=== PATIENT | female | born 1975 | race Caucasian/White ===

== ENCOUNTER → 2016-08-13 | Outpatient (CLI) | payer MEDICARE ==
[~2016-08-13] MED LIST: ADULT MULTI G200 MCG PO; AMOXICILLIN500 MG PO; AUGMENTIN ES-6100 ML PO; BACTRIM PEDIAT200 ML PO; CETIRIZINE HY1 MG/ML PO; CILOXAN 5 ML5 M1 OP; CIMETIDINE PO; FAMOTIDINE40 MG/5 M1 PO; KEFLEX250 MG/5 M PO; MULTI VITAMINS1 TAB PO; RANITIDINE15 MG/ML PO; TRIMOX,POL250 MG/5 M PO; TYLENOL W/ CODEI5 ML PO; ZOFRAN4 MG/5 ML PO
--- NOTE | ~2016-08-13 | SLPIE ---
[place], [place] PRESIDENTIAL SUPPORT SPECIALIST INITIAL EVALUATION NAME: JONAS GASTELUM UNIT #: [id number] ROOM: DOCTOR: YUKI GIBSON MD Speech Language Pathology Initial Evaluation Page 1 1 of Patient Name: JONAS GASTELUM Date: 08/13/2016 11:48 AM : 1975 SOC Date: 08/13/2016 [facility]: [facility] Provider #: [id number] Treating Clinician: ART Lorenzana-PRESIDENTIAL SUPPORT SPECIALIST Referring Physician: YUKI GIBSON Patient Information Address: [address] [place] [address] Physician: YUKI GIBSON Physician #: City, [facility], Zip: [place], [place] [address] Occupation: Unknown # of Approved Visits: 0 Gender: Female Shopper: DIMPLE GASTELUM Medicare #: [id number] Rehabilitation Information / History Onset Date Code Description Primary Diagnosis: 08/13/2016 A000.00 DIAGNOSIS FROM INTERFACE NOT FOUND IN [facility] TABLE Subjective Comments: Initial evaluation created to initiate the electronic medical record. Please see [employer] for details. Clinical Findings Functional Goals Functional Limitation Reporting Swallowing G8996 - Swallowing functional limitation, current status at therapy episode outset and at reporting intervals Current Status: CI - At least 1 percent but less than 20 percent impaired, limited or restricted G8997 - Swallowing functional limitation, projected goal status, at therapy episode outset, at reporting intervals, and at discharge or to end reporting Goal Status: CI - At least 1 percent but less than 20 percent impaired, limited or restricted G8998 - Swallowing functional limitation, discharge status, at discharge from therapy or to end reporting Discharge Status: CI - At least 1 percent but less than 20 percent impaired, limited or restricted 08/13/2016 11:49:20 AM ART Lorenzana-PRESIDENTIAL SUPPORT SPECIALIST Date/Time [place], [place] PRESIDENTIAL SUPPORT SPECIALIST INITIAL EVALUATION NAME: JONAS GASTELUM UNIT #: [id number] ROOM: DOCTOR: YUKI GIBSON MD [facility] License #: [id number] CM:CEDRIC 1158 1157 IS THERAPY [facility]
--- NOTE | ~2016-08-13 | SLPPOC ---
[place], [place] DICTATING MACHINE TRANSCRIBER PLAN OF CARE NAME: JONAS GASTELUM UNIT #: [id number] ROOM: DOCTOR: YUKI GIBSON MD Speech Language Pathology Plan of Care Page 1 1 (Initial Evaluation) of Patient Name: JONAS GASTELUM Date: 08/13/2016 11:48 AM : 1975 SOC Date: 08/13/2016 Provider: [facility] Provider #: [id number] Treating Clinician: ART Lorenzana-DICTATING MACHINE TRANSCRIBER Referring Physician: YUKI GIBSON Medicare #: [id number] Visits From SOC: 1 Onset Date Description Code Primary Diagnosis: 08/13/2016 A000.00 DIAGNOSIS FROM INTERFACE NOT FOUND IN [facility] TABLE Subjective Comments: Initial evaluation created to initiate the electronic medical record. Please see [employer] for details. Initial Level Goals Functional Limitation Reporting Swallowing G8996 - Swallowing functional limitation, current status at therapy episode outset and at reporting intervals Current Status: CI - At least 1 percent but less than 20 percent impaired, limited or restricted G8997 - Swallowing functional limitation, projected goal status, at therapy episode outset, at reporting intervals, and at discharge or to end reporting Goal Status: CI - At least 1 percent but less than 20 percent impaired, limited or restricted G8998 - Swallowing functional limitation, discharge status, at discharge from therapy or to end reporting Discharge Status: CI - At least 1 percent but less than 20 percent impaired, limited or restricted 08/13/2016 11:49:20 AM YUKI GIBSON Date/Time ART Lorenzana-TARAN Date I certify the need for these services furnished under this plan of treatment while under my care. State License #: [id number] CM:SLPPOC 1158 1157 IS THERAPY [facility]
--- NOTE | ~2016-08-13 | SLPPN ---
[place], [place] GAS PLANT SPECIALIST PROGRESS NOTE NAME: JONAS GASTELUM UNIT #: [id number] ROOM: DOCTOR: PAIGE SRIVASTAVA,YUKI Speech Language Pathology Treatment Note Page 1 1 of Patient Name: JONAS GASTELUM Date: 08/13/2016 11:49 AM : 1975 SOC Date: 08/13/2016 Provider: [facility] Provider #: [id number] Treating Clinician: ART Lorenzana-GAS PLANT SPECIALIST Referring Physician: YUKI GIBSON Onset Date Description Code Primary Diagnosis: 08/13/2016 A000.00 DIAGNOSIS FROM INTERFACE NOT FOUND IN [facility] TABLE Time In: 10:30 AM Time Out: 11:30 AM GAS PLANT SPECIALIST Interventions and CPT Codes Consisted of: CPT Code Modifiers Minutes Units MOTION FLUOROSCOPY/SWALLOW 56887 60 1 Total Minutes: 60 Total Timed Minutes: 0 Total Untimed Minutes: 60 Total Units: 1 Total Timed Units: 0 Total Untimed Units: 1 08/13/2016 11:50:28 AM ART Lorenzana-TARAN Date/Time State License #: [id number] CM:STEPHAN 1158 1158 IS THERAPY [facility]
--- NOTE | ~2016-08-13 | PROC NOTE ---
[place], [place] PROCEDURE NOTE NAME: JONAS GASTELUM UNIT #: [id number] ROOM: DOCTOR: ABHISHEK LANDA BIRTHDATE: [birth year] DOS: 08/13/2016 MODIFIED BARIUM SWALLOW DOCTOR: Dr. Celaya. RADIOLOGIST: Dr. Hayden. BACKGROUND INFORMATION: The patient is a 41-year-old female was seen for modified barium swallow. This test was ordered to rule out aspiration and view the pharyngeal phase of the swallow. The patient's mother accompanied her for the examination and reported that patient has been complaining of difficulty swallowing. Mom was unsure if she was truly having trouble as she reported that the patient continues to consume a regular diet and thin liquids without difficulty and has had no change in her appetite as well as no known weight loss. Medical history is significant for cerebral palsy and reflux. As previously mentioned, she consumes a regular diet and thin liquids. For today's assessment, she was alert, but with some confusion and difficulty following commands. Respiratory status was within normal limits. Oral peripheral examination revealed presence of upper teeth only. Poor lingual and labial range of motion were displayed. Coordination was mild to moderately impaired with lingual skills. She was unable to volitionally cough or swallow. METHODS AND MATERIALS USED FOR THE EXAM: The patient was positioned in the lateral plane and examination was viewed under fluoroscopy. The patient was presented with a variety of consistencies to assess swallowing skills including applesauce mixed with barium presented in half teaspoon amounts, barium-coated banana and cookie presented in bite size pieces and thin liquid barium taken both by cup and straw. ORAL PHASE: The patient achieved adequate labial seal around cup, spoon and straw with no anterior loss. Bolus formation was adequate. Oral transit was slow with solid consistencies. The patient presented in a natural chin tuck position, which led to food moving anteriorly due to gravity, which made her propulsion slower. Piecemeal swallow was also displayed with solid consistencies. Tongue to palate contact was within normal limits. Tongue to posterior pharyngeal wall contact was mildly impaired. Velar functioning was within normal limits with no nasal regurgitation. PHARYNGEAL PHASE: The pharyngeal swallow occurred within a timely manner. During the swallow, laryngeal elevation and epiglottic function were within normal limits. No penetration or aspiration occurred with any consistency. Mild residue was observed in the vallecula post-swallow. This did clear with subsequent swallows. IMPRESSIONS AND RECOMMENDATIONS: Based upon assessment results, this 41-year-old patient presents with a mild oral dysphagia. She displayed slow bolus propulsion and reduced tongue to posterior pharyngeal wall contraction resulting in mild residue in the vallecula. This residue did clear with reswallow or liquid wash. No penetration or aspiration occurred with any [place], [place] PROCEDURE NOTE NAME: JONAS GASTELUM UNIT #: [id number] ROOM: DOCTOR: ABHISHEK LANDA BIRTHDATE: [birth year] consistency. Recommend the patient remain on present diet, but with soft moist foods that are easier to propel and swallow safely. Also recommend upright feeding, alternating liquids and solids and encouraging an extra swallow or drink if a feeling of globus occurs. Results and recommendations were shared with the patient's mom and a written copy of recommendations was provided for carry over. No followup therapy is recommended. Mom verbalized understanding of all information provided. Thank you very much for this referral. Should you have any questions regarding this patient, please contact the speech pathologist at [phone]. ABHISHEK LANDA CM:PROCNOTE:PROCEDURE NOTE [id number] [id number] ABHISHEK LANDA
== END | disposition home or self-care (01) ==
LOC: RAD/SH 09:51
DX: R13.14 Dysphagia, pharyngoesophageal phase (principal); R13.0 Aphagia

== ENCOUNTER → 2016-10-30 | Outpatient (CLI) | payer MEDICARE ==
[2016-10-30 15:52] LABS: BASO % 0.4 % (0.0-1.0); EOS # 0.1 10*3/uL (0.0-0.4); EOS % 1.5 % (1.0-4.0); HEMATOCRIT 40.6 % (37.0-47.0); HEMOGLOBIN 13.2 g/dl (12.0-16.0); LYMPH # 1.4 10*3/uL (1.3-4.4); LYMPH % 18.3 % (27.0-41.0); MEAN CELL VOLUME 87.5 fl (81.0-99.0); MEAN CORPUSCULAR HGB 28.4 pg (27.0-31.0); MEAN CORPUSCULAR HGB CONC 32.5 g/dl (33.0-37.0); MEAN PLATELET VOLUME 9.5 fl (9.6-12.3); MONO # 0.7 10*3/uL (0.1-1.0); MONO % 9.4 % (3.0-9.0); NEUT # 5.2 10*3/uL (2.3-7.9); NEUT % 70.1 % (47.0-73.0); PLATELET COUNT AUTOMATED 355 10*3/uL (130-400); RED BLOOD COUNT 4.64 10*6/uL (4.10-5.10); RED CELL DISTRI WIDTH 13.8 % (0-14.5); WHITE BLOOD COUNT 7.5 10*3/uL (4.8-10.8)
[2016-10-30 16:25] LABS: ALBUMIN 3.7 gm/dl (3.1-4.5); ALKALINE PHOSPHATASE 85 U/L (45-117); BILIRUBIN, TOTAL 0.4 mg/dl (0.2-1.0); BUN 18 mg/dl (7-24); CARBON DIOXIDE 28 mmol/L (21-32); CHLORIDE 106 mmol/L (98-107); EST GLOM FILT AFRICAN AMERICAN > 60 ml/min; GLUCOSE 72 mg/dL (65-99); POTASSIUM 3.8 mmol/L (3.5-5.1); SGOT/AST 23 IU/L (3-35); SGPT/ALT 21 U/L (12-78); SODIUM 142 mmol/L (136-145); TOTAL PROTEIN 7.4 gm/dL (6.4-8.2)
[2016-10-30 16:33] LABS: THYROID STIM HORMONE (HS) 0.361 uIU/ml (0.358-4.75)
== END | disposition home or self-care (01) ==
LOC: LAB 14:57
PROVIDERS: Internal Medicine
DX: G80.0 Spastic quadriplegic cerebral palsy (principal); E55.9 Vitamin D deficiency, unspecified; R13.14 Dysphagia, pharyngoesophageal phase

== ENCOUNTER 2017-08-22 11:38 | Emergency (ER) | payer MEDICARE ==
[~2017-08-22] VITALS: Wt 45.4 kg
[2017-08-22] MEDS ORDERED: Klor-Con/Ef25 MEQ PO (11:47)
[2017-08-22 12:16] LABS: BASO % 0.3 % (0.0-1.0); EOS # 0.1 10*3/uL (0.0-0.4); EOS % 0.9 % (1.0-4.0); HEMATOCRIT 40.8 % (37.0-47.0); HEMOGLOBIN 12.9 g/dl (12.0-16.0); LYMPH # 0.9 10*3/uL (1.3-4.4); LYMPH % 7.9 % (27.0-41.0); MEAN CELL VOLUME 84.6 fl (81.0-99.0); MEAN CORPUSCULAR HGB 26.8 pg (27.0-31.0); MEAN CORPUSCULAR HGB CONC 31.6 g/dl (33.0-37.0); MEAN PLATELET VOLUME 9.5 fl (9.6-12.3); MONO # 0.6 10*3/uL (0.1-1.0); MONO % 5.2 % (3.0-9.0); NEUT # 9.2 10*3/uL (2.3-7.9); NEUT % 85.4 % (47.0-73.0); PLATELET COUNT AUTOMATED 327 10*3/uL (130-400); RED BLOOD COUNT 4.82 10*6/uL (4.10-5.10); RED CELL DISTRI WIDTH 16.1 % (0-14.5); WHITE BLOOD COUNT 10.7 10*3/uL (4.8-10.8)
[2017-08-22 12:24] LABS: ACT PARTIAL THROMBO TIME 22.7 SECONDS (20.8-31.5); INTERNATIONAL NORM RATIO 0.9 (2.0-3.5)
[2017-08-22 12:31] LABS: ALBUMIN 3.4 gm/dl (3.1-4.5); ALKALINE PHOSPHATASE 100 U/L (45-117); BUN 13 mg/dl (7-24); CHLORIDE 104 mmol/L (98-107); CREATININE 0.39 mg/dL (0.55-1.02); LIPASE 257 U/L (73-393); POTASSIUM 3.4 mmol/L (3.5-5.1); SGOT/AST 25 IU/L (3-35); SGPT/ALT 28 U/L (12-78); SODIUM 137 mmol/L (136-145); TOTAL PROTEIN 7.4 gm/dL (6.4-8.2); TROPONIN I < 0.015 ng/ml (<0.045)
[2017-08-22] MEDS ORDERED: KEPPRA100 MG/1 M PO (16:50)
== END 2017-08-22 16:58 | disposition home or self-care (01) ==
LOC: ED 11:38
PROVIDERS: Emergency Medicine
DX: R56.9 Unspecified convulsions (principal); Z79.899 Other long term (current) drug therapy

== ENCOUNTER 2017-09-27 19:55 | Emergency (ER) | payer MEDICARE ==
[~2017-09-27 19:55] MED LIST changes: +KEPPRA100 MG/1 M PO; +Klor-Con/Ef25 MEQ PO
[2017-09-27] MEDS ORDERED: LEVETIRACE100 MG/1 M PO (20:02)
[2017-09-27 20:54] LABS: BASO # 0.1 10*3/uL (0.0-0.1); BASO % 0.5 % (0.0-1.0); EOS # 0.2 10*3/uL (0.0-0.4); EOS % 1.6 % (1.0-4.0); HEMATOCRIT 39.7 % (37.0-47.0); HEMOGLOBIN 12.6 g/dl (12.0-16.0); LYMPH # 1.4 10*3/uL (1.3-4.4); LYMPH % 15.2 % (27.0-41.0); MEAN CELL VOLUME 85.2 fl (81.0-99.0); MEAN CORPUSCULAR HGB CONC 31.7 g/dl (33.0-37.0); MEAN PLATELET VOLUME 9.8 fl (9.6-12.3); MONO # 0.9 10*3/uL (0.1-1.0); MONO % 9.6 % (3.0-9.0); NEUT # 6.8 10*3/uL (2.3-7.9); PLATELET COUNT AUTOMATED 397 10*3/uL (130-400); RED BLOOD COUNT 4.66 10*6/uL (4.10-5.10); RED CELL DISTRI WIDTH 14.7 % (0-14.5); WHITE BLOOD COUNT 9.3 10*3/uL (4.8-10.8)
[2017-09-27 21:06] LABS: BUN 20 mg/dl (7-24); CHLORIDE 108 mmol/L (98-107); CREATININE 0.43 mg/dL (0.55-1.02); POTASSIUM 3.7 mmol/L (3.5-5.1); SODIUM 143 mmol/L (136-145)
[2017-09-27] MEDS ORDERED: TRIMOX,POL250 MG/5 M PO (22:28)
[2017-09-27] MEDS ORDERED: MOTRIN CHI100 MG/51 PO (22:29)
== END 2017-09-27 22:32 | disposition home or self-care (01) ==
LOC: ED 19:55
PROVIDERS: Emergency Medicine Emergency Medical Services
DX: J02.9 Acute pharyngitis, unspecified (principal); R13.10 Dysphagia, unspecified; G80.0 Spastic quadriplegic cerebral palsy; Z79.899 Other long term (current) drug therapy

== ENCOUNTER → 2018-03-17 | Outpatient (CLI) | payer MEDICARE ==
[~2018-03-17] MED LIST changes: +LEVETIRACE100 MG/1 M PO; +MOTRIN CHI100 MG/51 PO
== END | disposition home or self-care (01) ==
LOC: WOUNDCARE 05:32 → RAD 05:32 → WOUNDCARE 07:00
DX: L89.221 Pressure ulcer of left hip, stage 1 (principal); L89.321 Pressure ulcer of left buttock, stage 1; G80.0 Spastic quadriplegic cerebral palsy; K21.9 Gastro-esophageal reflux disease without esophagitis

== ENCOUNTER 2018-07-03 14:14 | Emergency (ER) | payer MEDICARE ==
[~2018-07-03] VITALS: Wt 36.3 kg
[2018-07-03 14:56] LABS: BASO # 0.1 10*3/uL (0.0-0.1); BASO % 0.6 % (0.0-1.0); EOS # 0.6 10*3/uL (0.0-0.4); EOS % 7.3 % (1.0-4.0); HEMATOCRIT 38.2 % (37.0-47.0); HEMOGLOBIN 12.4 g/dl (12.0-16.0); LYMPH # 1.5 10*3/uL (1.3-4.4); LYMPH % 18.2 % (27.0-41.0); MEAN CELL VOLUME 90.7 fl (81.0-99.0); MEAN CORPUSCULAR HGB 29.5 pg (27.0-31.0); MEAN CORPUSCULAR HGB CONC 32.5 g/dl (33.0-37.0); MEAN PLATELET VOLUME 9.3 fl (9.6-12.3); MONO # 0.7 10*3/uL (0.1-1.0); NEUT # 5.2 10*3/uL (2.3-7.9); NEUT % 64.6 % (47.0-73.0); PLATELET COUNT AUTOMATED 418 10*3/uL (130-400); RED BLOOD COUNT 4.21 10*6/uL (4.10-5.10); RED CELL DISTRI WIDTH 14.6 % (0-14.5)
[2018-07-03 15:41] LABS: ALBUMIN 2.9 gm/dl (3.1-4.5); ALKALINE PHOSPHATASE 126 U/L (45-117); BUN 11 mg/dl (7-24); CHLORIDE 106 mmol/L (98-107); CREATININE 0.37 mg/dL (0.55-1.02); POTASSIUM 3.7 mmol/L (3.5-5.1); SGOT/AST 27 IU/L (3-35); SGPT/ALT 29 U/L (12-78); SODIUM 142 mmol/L (136-145); TOTAL PROTEIN 7.2 gm/dL (6.4-8.2)
[2018-07-03] MEDS ORDERED: MUCINEX DM ER1 EACH PO (15:56)
== END 2018-07-03 16:11 | disposition home or self-care (01) ==
LOC: ED 14:14
PROVIDERS: Nurse Practitioner Family
DX: B34.9 Viral infection, unspecified (principal); R03.0 Elevated blood-pressure reading, without diagnosis of hypertension; Z79.899 Other long term (current) drug therapy

== ENCOUNTER 2019-03-10 00:44 | Emergency (ER) | payer MEDICARE ==
[~2019-03-10] VITALS: Ht 147.3 cm; Wt 44.5 kg
[~2019-03-10 00:44] MED LIST changes: +MUCINEX DM ER1 EACH PO
[2019-03-10 01:41] LABS: BASO % 0.4 % (0.0-1.0); EOS # 0.4 10*3/uL (0.0-0.4); EOS % 3.9 % (1.0-4.0); HEMATOCRIT 40.6 % (37.0-47.0); HEMOGLOBIN 12.6 g/dl (12.0-16.0); LYMPH % 10.5 % (27.0-41.0); MEAN CELL VOLUME 90.2 fl (81.0-99.0); MONO # 0.7 10*3/uL (0.1-1.0); MONO % 6.7 % (3.0-9.0); NEUT # 7.6 10*3/uL (2.3-7.9); NEUT % 78.4 % (47.0-73.0); PLATELET COUNT AUTOMATED 414 10*3/uL (130-400); RED CELL DISTRI WIDTH 15.9 % (0-14.5); WHITE BLOOD COUNT 9.7 10*3/uL (4.8-10.8)
[2019-03-10 01:55] LABS: ALKALINE PHOSPHATASE 125 U/L (45-117); BUN 13 mg/dl (7-24); CHLORIDE 107 mmol/L (98-107); CREATININE 0.51 mg/dL (0.55-1.02); POTASSIUM 3.6 mmol/L (3.5-5.1); SGOT/AST 23 IU/L (3-35); SGPT/ALT 25 U/L (12-78); SODIUM 141 mmol/L (136-145); TOTAL PROTEIN 7.1 gm/dL (6.4-8.2)
== END 2019-03-10 03:15 | disposition home or self-care (01) ==
LOC: ED 00:44
PROVIDERS: Physician Assistant
DX: B34.9 Viral infection, unspecified (principal); Z79.899 Other long term (current) drug therapy

== ENCOUNTER → 2019-09-13 | Outpatient (CLI) | payer MEDICARE ==
[2019-09-13 15:40] LABS: BASO % 0.4 % (0.0-1.0); EOS # 0.4 10*3/uL (0.0-0.4); EOS % 5.8 % (1.0-4.0); HEMATOCRIT 38.5 % (37.0-47.0); LYMPH # 1.1 10*3/uL (1.3-4.4); LYMPH % 15.1 % (27.0-41.0); MEAN CELL VOLUME 84.4 fl (81.0-99.0); MEAN CORPUSCULAR HGB 25.9 pg (27.0-31.0); MEAN CORPUSCULAR HGB CONC 30.6 g/dl (33.0-37.0); MONO # 0.6 10*3/uL (0.1-1.0); MONO % 8.8 % (3.0-9.0); NEUT # 4.9 10*3/uL (2.3-7.9); NEUT % 69.5 % (47.0-73.0); PLATELET COUNT AUTOMATED 524 10*3/uL (130-400); RED BLOOD COUNT 4.56 10*6/uL (4.10-5.10)
[2019-09-13 15:55] LABS: ALBUMIN 2.6 gm/dl (3.1-4.5); ALKALINE PHOSPHATASE 219 U/L (45-117); BUN 12 mg/dl (7-24); CHLORIDE 108 mmol/L (98-107); CREATININE 0.38 mg/dL (0.55-1.02); POTASSIUM 4.2 mmol/L (3.5-5.1); SGOT/AST 25 IU/L (3-35); SGPT/ALT 32 U/L (12-78); SODIUM 138 mmol/L (136-145); TOTAL PROTEIN 7.1 gm/dL (6.4-8.2)
== END | disposition home or self-care (01) ==
LOC: LAB 14:40 → US 15:00
PROVIDERS: Family Medicine
DX: M79.89 Other specified soft tissue disorders (principal)

== ENCOUNTER → 2019-09-20 | Outpatient (CLI) | payer MEDICARE ==
[2019-09-20 14:07] LABS: HEMATOCRIT 36.7 % (37.0-47.0); MEAN CELL VOLUME 85.5 fl (81.0-99.0); MEAN CORPUSCULAR HGB 25.9 pg (27.0-31.0); MEAN CORPUSCULAR HGB CONC 30.2 g/dl (33.0-37.0); MEAN PLATELET VOLUME 8.7 fl (9.6-12.3); PLATELET COUNT AUTOMATED 587 10*3/uL (130-400); RED BLOOD COUNT 4.29 10*6/uL (4.10-5.10); RED CELL DISTRI WIDTH 15.7 % (0-14.5); WHITE BLOOD COUNT 7.7 10*3/uL (4.8-10.8)
[2019-09-20 14:32] LABS: PLATELET SUFFICIENCY HIGH (NORMAL); TOTAL CELLS COUNTED 100 #CELLS
== END | disposition home or self-care (01) ==
LOC: LAB 13:15
PROVIDERS: Family Medicine
DX: D72.819 Decreased white blood cell count, unspecified (principal); R79.89 Other specified abnormal findings of blood chemistry

== ENCOUNTER → 2020-05-10 | Outpatient (CLI) | payer MEDICARE | END | disposition home or self-care (01) | LOC: COVID19 13:16 | PROVIDERS: ATTEND Family Medicine | DX: U07.1 COVID-19 (principal) ==

== ENCOUNTER 2021-02-02 16:37 | Emergency (ER) | payer MEDICARE ==
[~2021-02-02 16:37] MED LIST changes: +CARAFATE1 GM/10 ML PO; -FAMOTIDINE40 MG/5 M1 PO; +FAMOTIDINE40 MG/5 M2 PO; +METHOCARBAMOL500 M1 PO; +POTASSIUM20 MEQ/16 PO; +VITAMIN D325 MCG PO; +ZITHROMAX200 MG/51 PO
[2021-02-02 18:33] LABS: BILIRUBIN Negative (Negative); BLOOD 3+ (Negative); CLARITY Cloudy (Clear); COLOR Yellow (Yellow); GLUCOSE Negative (Negative); KETONE Trace (Negative); LEUKO ESTERASE 1+ (Negative); NITRITE Negative (Negative); PH 5.5 (4.5-8.0); SPECIFIC GRAVITY 1.025 (1.001-1.030); UROBILINOGEN 0.2 E.U./dl (0.0-1.0)
[2021-02-02 18:42] LABS: BASO % 0.4 % (0.0-1.0); EOS # 0.2 10*3/uL (0.0-0.4); EOS % 1.7 % (1.0-4.0); HEMATOCRIT 43.5 % (37.0-47.0); LYMPH # 1.1 10*3/uL (1.3-4.4); LYMPH % 10.1 % (27.0-41.0); MEAN CELL VOLUME 96.7 fl (81.0-99.0); MEAN CORPUSCULAR HGB 30.9 pg (27.0-31.0); MEAN PLATELET VOLUME 9.9 fl (9.6-12.3); MONO # 0.9 10*3/uL (0.1-1.0); MONO % 8.1 % (3.0-9.0); NEUT % 79.3 % (47.0-73.0); PLATELET COUNT AUTOMATED 251 10*3/uL (130-400); RED CELL DISTRI WIDTH 13.3 % (0-14.5); WHITE BLOOD COUNT 11.3 10*3/uL (4.8-10.8)
[2021-02-02 18:46] LABS: BACTERIA 3+; CALCIUM OXALATE CRYSTALS Trace; EPITHELIAL CELLS 51-100; RBC 51-100 rbc/hpf (0-2); WBC 21-30 wbc/hpf (0-5)
[2021-02-02 19:00] LABS: ALBUMIN 3.2 gm/dl (3.1-4.5); ALKALINE PHOSPHATASE 97 U/L (45-117); BUN 15 mg/dl (7-24); CHLORIDE 108 mmol/L (98-107); CREATININE 0.44 mg/dL (0.55-1.02); LIPASE 312 U/L (73-393); SGOT/AST 22 IU/L (3-35); SGPT/ALT 30 U/L (12-78); SODIUM 141 mmol/L (136-145); TOTAL PROTEIN 7.2 gm/dL (6.4-8.2)
[2021-02-02] MEDS ORDERED: AUGMENTIN 875875 MG PO (23:06)
[2021-02-02] MEDS ORDERED: AUGMENTIN600 MG/5 M PO (23:15)
== END 2021-02-02 23:10 | disposition home or self-care (01) ==
LOC: ED 16:37
PROVIDERS: Family Medicine
DX: N39.0 Urinary tract infection, site not specified (principal); N20.0 Calculus of kidney; Z79.899 Other long term (current) drug therapy

== ENCOUNTER 2021-02-26 17:41 | Emergency (ER) | payer MEDICARE ==
[~2021-02-26] VITALS: Wt 29.5 kg
[~2021-02-26 17:41] MED LIST changes: +AUGMENTIN 875875 MG PO; +AUGMENTIN600 MG/5 M PO
[2021-02-26 20:19] LABS: BASO % 0.3 % (0.0-1.0); EOS # 0.1 10*3/uL (0.0-0.4); EOS % 0.7 % (1.0-4.0); HEMATOCRIT 44.5 % (37.0-47.0); LYMPH # 1.4 10*3/uL (1.3-4.4); LYMPH % 12.1 % (27.0-41.0); MEAN CELL VOLUME 94.9 fl (81.0-99.0); MEAN CORPUSCULAR HGB 30.9 pg (27.0-31.0); MEAN CORPUSCULAR HGB CONC 32.6 g/dl (33.0-37.0); MEAN PLATELET VOLUME 9.2 fl (9.6-12.3); MONO # 0.9 10*3/uL (0.1-1.0); MONO % 7.4 % (3.0-9.0); NEUT # 9.2 10*3/uL (2.3-7.9); NEUT % 79.2 % (47.0-73.0); PLATELET COUNT AUTOMATED 346 10*3/uL (130-400); RED BLOOD COUNT 4.69 10*6/uL (4.10-5.10); RED CELL DISTRI WIDTH 12.9 % (0-14.5); WHITE BLOOD COUNT 11.5 10*3/uL (4.8-10.8)
[2021-02-26 20:36] LABS: ALBUMIN 3.3 gm/dl (3.1-4.5); ALKALINE PHOSPHATASE 92 U/L (45-117); BUN 7 mg/dl (7-24); CHLORIDE 106 mmol/L (98-107); CREATININE 0.38 mg/dL (0.55-1.02); LIPASE 140 U/L (73-393); POTASSIUM 3.5 mmol/L (3.5-5.1); SGOT/AST 26 IU/L (3-35); SGPT/ALT 31 U/L (12-78); SODIUM 138 mmol/L (136-145); TOTAL PROTEIN 7.3 gm/dL (6.4-8.2)
[2021-02-27] MEDS ORDERED: AUGMENTIN600 MG/5 M PO (03:25)
== END 2021-02-27 04:03 | disposition home or self-care (01) ==
LOC: ED 17:41
PROVIDERS: Emergency Medicine
DX: N20.0 Calculus of kidney (principal); Z79.899 Other long term (current) drug therapy

== ENCOUNTER 2021-07-26 15:57 | Emergency (ER) | payer MEDICARE ==
[~2021-07-26] VITALS: Wt 31.7 kg
[2021-07-26 17:47] LABS: BASO % 0.2 % (0.0-1.0); EOS # 0.1 10*3/uL (0.0-0.4); HEMATOCRIT 40.2 % (37.0-47.0); LYMPH # 0.7 10*3/uL (1.3-4.4); LYMPH % 8.4 % (27.0-41.0); MEAN CORPUSCULAR HGB 31.7 pg (27.0-31.0); MEAN CORPUSCULAR HGB CONC 33.3 g/dl (33.0-37.0); MEAN PLATELET VOLUME 9.2 fl (9.6-12.3); MONO # 0.8 10*3/uL (0.1-1.0); MONO % 9.6 % (3.0-9.0); NEUT # 6.7 10*3/uL (2.3-7.9); NEUT % 80.6 % (47.0-73.0); PLATELET COUNT AUTOMATED 258 10*3/uL (130-400); RED BLOOD COUNT 4.23 10*6/uL (4.10-5.10); RED CELL DISTRI WIDTH 11.9 % (0-14.5); WHITE BLOOD COUNT 8.3 10*3/uL (4.8-10.8)
[2021-07-26 18:05] LABS: ALKALINE PHOSPHATASE 81 U/L (45-117); BUN 9 mg/dl (7-24); CHLORIDE 107 mmol/L (98-107); CREATININE 0.33 mg/dL (0.55-1.02); LIPASE 130 U/L (73-393); POTASSIUM 3.1 mmol/L (3.5-5.1); SGOT/AST 15 IU/L (3-35); SGPT/ALT 16 U/L (12-78); SODIUM 137 mmol/L (136-145); TOTAL PROTEIN 6.7 gm/dL (6.4-8.2)
== END 2021-07-27 00:04 | disposition short-term general hospital (02) ==
LOC: ED 15:57
PROVIDERS: Physician Assistant
DX: R34 Anuria and oliguria (principal); Z79.899 Other long term (current) drug therapy

== ENCOUNTER → 2021-09-17 | Day surgery (SDC) | payer MEDICARE ==
[2021-09-17 09:18] LABS: BASO % 0.5 % (0.0-1.0); EOS # 0.4 10*3/uL (0.0-0.4); EOS % 5.6 % (1.0-4.0); HEMATOCRIT 42.9 % (37.0-47.0); LYMPH # 1.2 10*3/uL (1.3-4.4); LYMPH % 18.3 % (27.0-41.0); MEAN CELL VOLUME 93.1 fl (81.0-99.0); MEAN CORPUSCULAR HGB CONC 33.3 g/dl (33.0-37.0); MEAN PLATELET VOLUME 9.2 fl (9.6-12.3); MONO # 0.6 10*3/uL (0.1-1.0); MONO % 8.9 % (3.0-9.0); NEUT # 4.4 10*3/uL (2.3-7.9); NEUT % 66.4 % (47.0-73.0); PLATELET COUNT AUTOMATED 310 10*3/uL (130-400); RED BLOOD COUNT 4.61 10*6/uL (4.10-5.10); RED CELL DISTRI WIDTH 12.7 % (0-14.5); WHITE BLOOD COUNT 6.7 10*3/uL (4.8-10.8)
[2021-09-17 09:28] LABS: ACT PARTIAL THROMBO TIME 25.2 SECONDS (20.0-32.1); INTERNATIONAL NORM RATIO 0.9 (2.0-3.5)
== END | disposition home or self-care (01) ==
LOC: SDC 08:54 → LAB 08:54 → SDC 10:00
PROVIDERS: Urology; ATTEND Nurse Practitioner Family
DX: R32 Unspecified urinary incontinence (principal); Z79.01 Long term (current) use of anticoagulants

== ENCOUNTER → 2021-11-28 | Outpatient (CLI) | payer MEDICARE | END | disposition home or self-care (01) | LOC: COVID19 01:38 | PROVIDERS: ATTEND Family Medicine | DX: U07.1 COVID-19 (principal) ==

== ENCOUNTER → 2021-12-06 | Outpatient (CLI) | payer MEDICARE ==
[2021-12-06 11:38] LABS: BASO # 0.1 10*3/uL (0.0-0.1); BASO % 0.7 % (0.0-1.0); EOS # 0.3 10*3/uL (0.0-0.4); EOS % 4.3 % (1.0-4.0); HEMATOCRIT 45.6 % (37.0-47.0); LYMPH # 1.4 10*3/uL (1.3-4.4); LYMPH % 18.5 % (27.0-41.0); MEAN CELL VOLUME 91.9 fl (81.0-99.0); MEAN CORPUSCULAR HGB 29.8 pg (27.0-31.0); MEAN CORPUSCULAR HGB CONC 32.5 g/dl (33.0-37.0); MEAN PLATELET VOLUME 8.8 fl (9.6-12.3); MONO # 0.6 10*3/uL (0.1-1.0); MONO % 8.2 % (3.0-9.0); NEUT # 5.1 10*3/uL (2.3-7.9); PLATELET COUNT AUTOMATED 388 10*3/uL (130-400); RED BLOOD COUNT 4.96 10*6/uL (4.10-5.10); RED CELL DISTRI WIDTH 12.8 % (0-14.5); WHITE BLOOD COUNT 7.4 10*3/uL (4.8-10.8)
[2021-12-06 11:56] LABS: BUN 10 mg/dl (7-24); CHLORIDE 107 mmol/L (98-107); CREATININE 0.49 mg/dL (0.55-1.02); IRON 56 ug/dL (50-170); POTASSIUM 3.7 mmol/L (3.5-5.1); SGOT/AST 20 IU/L (3-35); SGPT/ALT 24 U/L (12-78); SODIUM 137 mmol/L (136-145)
[2021-12-06 11:59] LABS: ALKALINE PHOSPHATASE 105 U/L (45-117); TOTAL PROTEIN 7.5 gm/dL (6.4-8.2)
== END | disposition home or self-care (01) ==
LOC: LAB 10:55
PROVIDERS: ATTEND Family Medicine
DX: G80.9 Cerebral palsy, unspecified (principal); Z11.59 Encounter for screening for other viral diseases; E55.9 Vitamin D deficiency, unspecified; D50.9 Iron deficiency anemia, unspecified

== ENCOUNTER → 2021-12-31 | Day surgery (SDC) | payer MEDICARE ==
[2021-12-31 10:50] LABS: BASO % 0.6 % (0.0-1.0); EOS # 0.3 10*3/uL (0.0-0.4); HEMATOCRIT 44.2 % (37.0-47.0); LYMPH % 15.5 % (27.0-41.0); MEAN CELL VOLUME 91.1 fl (81.0-99.0); MEAN CORPUSCULAR HGB 30.5 pg (27.0-31.0); MEAN CORPUSCULAR HGB CONC 33.5 g/dl (33.0-37.0); MEAN PLATELET VOLUME 9.1 fl (9.6-12.3); MONO # 0.6 10*3/uL (0.1-1.0); MONO % 8.6 % (3.0-9.0); NEUT # 4.6 10*3/uL (2.3-7.9); NEUT % 71.1 % (47.0-73.0); PLATELET COUNT AUTOMATED 350 10*3/uL (130-400); RED BLOOD COUNT 4.85 10*6/uL (4.10-5.10); RED CELL DISTRI WIDTH 13.3 % (0-14.5); WHITE BLOOD COUNT 6.5 10*3/uL (4.8-10.8)
[2021-12-31 11:01] LABS: ACT PARTIAL THROMBO TIME 26.2 SECONDS (20.0-32.1)
== END | disposition home or self-care (01) ==
LOC: SDC 09:54
PROVIDERS: Urology; ATTEND Nurse Practitioner Family
DX: R32 Unspecified urinary incontinence (principal); Z79.01 Long term (current) use of anticoagulants

== ENCOUNTER 2022-06-10 13:38 | Emergency (ER) | payer OTHER ==
[~2022-06-10] VITALS: Ht 154.9 cm; Wt 25.9 kg
[2022-06-10 15:00] LABS: BASO % 0.5 % (0.0-1.0); EOS # 0.2 10*3/uL (0.0-0.4); EOS % 2.6 % (1.0-4.0); HEMATOCRIT 44.5 % (37.0-47.0); LYMPH # 1.1 10*3/uL (1.3-4.4); LYMPH % 12.3 % (27.0-41.0); MEAN CELL VOLUME 94.3 fl (81.0-99.0); MEAN CORPUSCULAR HGB 31.4 pg (27.0-31.0); MEAN CORPUSCULAR HGB CONC 33.3 g/dl (33.0-37.0); MEAN PLATELET VOLUME 9.2 fl (9.6-12.3); MONO # 0.8 10*3/uL (0.1-1.0); MONO % 9.6 % (3.0-9.0); NEUT # 6.6 10*3/uL (2.3-7.9); NEUT % 74.8 % (47.0-73.0); PLATELET COUNT AUTOMATED 278 10*3/uL (130-400); RED BLOOD COUNT 4.72 10*6/uL (4.10-5.10); RED CELL DISTRI WIDTH 13.2 % (0-14.5); WHITE BLOOD COUNT 8.8 10*3/uL (4.8-10.8)
[2022-06-10 15:20] LABS: ALKALINE PHOSPHATASE 95 U/L (46-116); BUN 8 mg/dl (9-23); CHLORIDE 105 mmol/L (98-107); POTASSIUM 4.1 mmol/L (3.4-5.1); SGPT/ALT 24 U/L (10-49); TOTAL PROTEIN 7.4 gm/dL (6.0-8.0)
[2022-06-10 15:29] LABS: BILIRUBIN Negative (Negative); BLOOD 3+ (Negative); CLARITY Cloudy (Clear); COLOR Yellow (Yellow); GLUCOSE Negative (Negative); KETONE Negative (Negative); LEUKO ESTERASE 3+ (Negative); NITRITE Negative (Negative); SPECIFIC GRAVITY 1.015 (1.001-1.030); UROBILINOGEN 0.2 E.U./dl (0.0-1.0)
[2022-06-10 15:42] LABS: BACTERIA 1+; RBC 51-100 rbc/hpf (0-2)
[2022-06-10] MEDS ORDERED: CEPHALEXIN500 M1 PO (18:04)
== END 2022-06-10 19:33 | disposition home or self-care (01) ==
LOC: ED 13:38
PROVIDERS: Nurse Practitioner Family
DX: N39.0 Urinary tract infection, site not specified (principal); Z79.899 Other long term (current) drug therapy

== ENCOUNTER 2022-09-17 12:42 | Emergency (ER) | payer OTHER ==
[~2022-09-17] VITALS: Wt 40.8 kg
[~2022-09-17 12:42] MED LIST changes: +CEPHALEXIN500 M1 PO
[2022-09-17] MEDS ORDERED: CEPHALEXIN500 M1 PO (14:57)
== END 2022-09-17 15:10 | disposition home or self-care (01) ==
LOC: ED 12:42
DX: R10.2 Pelvic and perineal pain (principal); K21.9 Gastro-esophageal reflux disease without esophagitis; Z87.442 Personal history of urinary calculi; Z98.890 Other specified postprocedural states

== ENCOUNTER 2022-11-01 14:33 | Emergency (ER) | payer OTHER ==
[~2022-11-01] VITALS: Wt 53.1 kg
[2022-11-01 15:21] LABS: BASO % 0.7 % (0.0-1.0); EOS # 0.2 10*3/uL (0.0-0.4); EOS % 4.6 % (1.0-4.0); HEMATOCRIT 29.9 % (37.0-47.0); LYMPH % 21.7 % (27.0-41.0); MEAN CELL VOLUME 96.8 fl (81.0-99.0); MEAN CORPUSCULAR HGB 31.7 pg (27.0-31.0); MEAN CORPUSCULAR HGB CONC 32.8 g/dl (33.0-37.0); MEAN PLATELET VOLUME 9.3 fl (9.6-12.3); MONO # 0.4 10*3/uL (0.1-1.0); MONO % 9.6 % (3.0-9.0); NEUT # 2.8 10*3/uL (2.3-7.9); NEUT % 63.2 % (47.0-73.0); PLATELET COUNT AUTOMATED 193 10*3/uL (130-400); RED BLOOD COUNT 3.09 10*6/uL (4.10-5.10); RED CELL DISTRI WIDTH 12.7 % (0-14.5); WHITE BLOOD COUNT 4.4 10*3/uL (4.8-10.8)
[2022-11-01 15:55] LABS: ALKALINE PHOSPHATASE 66 U/L (46-116); BUN 5 mg/dl (9-23); CHLORIDE 123 mmol/L (98-107); SGPT/ALT 22 U/L (10-49); TOTAL PROTEIN 3.6 gm/dL (6.0-8.0)
[2022-11-01 16:02] LABS: BILIRUBIN 2+ (Negative); BLOOD 2+ (Negative); CLARITY Turbid (Clear); COLOR Dark Yellow (Yellow); GLUCOSE Trace (Negative); KETONE Negative (Negative); LEUKO ESTERASE 3+ (Negative); NITRITE Positive (Negative); PH 7.5 (4.5-8.0); SPECIFIC GRAVITY 1.015 (1.001-1.030)
[2022-11-01 16:02] LABS: POTASSIUM 2.1 mmol/L (3.4-5.1)
[2022-11-01 16:14] LABS: EPITHELIAL CELLS 0-2
[2022-11-01 16:15] LABS: BACTERIA 4+
[2022-11-01 16:41] LABS: POTASSIUM 3.8 mmol/L (3.4-5.1)
== END 2022-11-01 23:25 | disposition short-term general hospital (02) ==
LOC: ED 14:33
PROVIDERS: Emergency Medicine
DX: N82.3 Fistula of vagina to large intestine (principal); N39.0 Urinary tract infection, site not specified

== ENCOUNTER 2023-06-06 11:43 | Emergency (ER) | payer OTHER ==
[~2023-06-06 11:43] MED LIST changes: +ALLERGY REL1 MG/1 ML PO; +MOTRIN CHI100 MG/53 PO; +OMNICEF300 MG PO; +PRILOSEC10 M2 PO; +[UNRECOGNIZED DRUG - OTHER] PO
[2023-06-06 12:40] LABS: ALKALINE PHOSPHATASE 109 U/L (46-116); BUN 14 mg/dl (9-23); CHLORIDE 109 mmol/L (98-107); LIPASE 63 U/L (12-53); POTASSIUM 3.4 mmol/L (3.4-5.1); SGPT/ALT 41 U/L (5-49); TOTAL PROTEIN 6.8 gm/dL (6.0-8.0)
[2023-06-06 12:57] LABS: BASO % 0.6 % (0.0-1.0); EOS # 0.4 10*3/uL (0.0-0.4); EOS % 8.3 % (1.0-4.0); HEMATOCRIT 42.6 % (37.0-47.0); LYMPH % 20.4 % (27.0-41.0); MEAN CELL VOLUME 95.9 fl (81.0-99.0); MEAN CORPUSCULAR HGB 31.5 pg (27.0-31.0); MEAN CORPUSCULAR HGB CONC 32.9 g/dl (33.0-37.0); MEAN PLATELET VOLUME 8.9 fl (9.6-12.3); MONO # 0.5 10*3/uL (0.1-1.0); MONO % 10.5 % (3.0-9.0); PLATELET COUNT AUTOMATED 252 10*3/uL (130-400); RED BLOOD COUNT 4.44 10*6/uL (4.10-5.10); RED CELL DISTRI WIDTH 12.4 % (0-14.5)
[2023-06-06] MEDS ORDERED: CIPRO500 MG/5 M PO (14:45)
== END 2023-06-06 14:48 | disposition home or self-care (01) ==
LOC: ED 11:43
PROVIDERS: Physician Assistant Medical
DX: N39.0 Urinary tract infection, site not specified (principal); H92.09 Otalgia, unspecified ear; K21.9 Gastro-esophageal reflux disease without esophagitis; Z87.442 Personal history of urinary calculi; Z98.890 Other specified postprocedural states

== ENCOUNTER → 2024-03-08 | Outpatient (CLI) | payer OTHER ==
[~2024-03-08] MED LIST changes: +CIPRO500 MG/5 M PO
[2024-03-08 13:27] LABS: BASO % 0.8 % (0.0-1.0); EOS # 0.2 10*3/uL (0.0-0.4); EOS % 4.6 % (1.0-4.0); LYMPH # 1.3 10*3/uL (1.3-4.4); LYMPH % 33.7 % (27.0-41.0); MEAN CELL VOLUME 90.3 fl (81.0-99.0); MEAN CORPUSCULAR HGB 30.5 pg (27.0-31.0); MEAN CORPUSCULAR HGB CONC 33.8 g/dl (33.0-37.0); MEAN PLATELET VOLUME 9.1 fl (9.6-12.3); MONO # 0.5 10*3/uL (0.1-1.0); MONO % 13.1 % (3.0-9.0); NEUT # 1.9 10*3/uL (2.3-7.9); NEUT % 47.5 % (47.0-73.0); PLATELET COUNT AUTOMATED 275 10*3/uL (130-400); RED BLOOD COUNT 4.65 10*6/uL (4.10-5.10); RED CELL DISTRI WIDTH 13.4 % (0-14.5); WHITE BLOOD COUNT 3.9 10*3/uL (4.8-10.8)
[2024-03-08 14:11] LABS: VITAMIN D, 25-HYDROXY 107.8 ng/mL (30-100)
[2024-03-08 15:45] LABS: ALKALINE PHOSPHATASE 232 U/L (46-116); BUN 10 mg/dl (9-23); CHLORIDE 108 mmol/L (98-107); CHOLESTEROL 224 mg/dL (<200); LDL CHOLESTEROL 149 mg/dL (9-159); LIPASE 72 U/L (12-53); POTASSIUM 3.2 mmol/L (3.4-5.1); SGPT/ALT 110 U/L (5-49); TOTAL PROTEIN 7.2 gm/dL (6.0-8.0); TRIGLYCERIDES 111 mg/dl (<150)
== END | disposition home or self-care (01) ==
LOC: LAB 12:57
PROVIDERS: Family Medicine; ATTEND Nurse Practitioner Family
DX: N20.0 Calculus of kidney (principal); E59 Dietary selenium deficiency; R74.01 Elevation of levels of liver transaminase levels; D50.9 Iron deficiency anemia, unspecified; K80.20 Calculus of gallbladder without cholecystitis without obstruction

== ENCOUNTER → 2024-12-29 | Outpatient (CLI) | payer OTHER | END | disposition home or self-care (01) | LOC: US 01:24 | PROVIDERS: ATTEND Orthopaedic Surgery | DX: R92.323 Mammographic fibroglandular density, bilateral breasts (principal); Z12.39 Encounter for other screening for malignant neoplasm of breast; N64.4 Mastodynia ==